=== PATIENT | male | born 1995 | race Caucasian/White ===

== ENCOUNTER 2019-11-01 19:46 | Emergency (ER) | payer BC, OTHER ==
[2019-11-01 20:26] VITALS: BP 108/75
--- NOTE | 2019-11-01 20:44 | UC ---
Skin Complaint HPI - HPI Summary HPI Summary: 24-year-old male who noticed an itchy red area the back of his left lower leg yesterday. He's been scratching at it and today it's a little more swollen but continues to be itchy. - History of Current Complaint Chief Complaint: [facility] Time Seen by Provider: 11/01/19 20:41 Stated Complaint: LEFT LEG RASH Hx Obtained From: Patient Onset/Duration: Gradual Onset Skin Exposure Onset/Duration: Worse Since: - Yesterday Timing: Constant Onset Severity: Mild Current Severity: Mild Pain Intensity: 0 Location: Other - Back of left lower leg Character: Pruritus, Redness Aggravating Factor(s): Nothing Alleviating Factor(s): Nothing Associated Signs & Symptoms: Positive: Rash - Allergy/Home Medications Allergies/Adverse Reactions: Allergies Allergy/AdvReac Type Severity Reaction Status Date / Time latex Allergy Rash Verified 11/01/19 20:22 Home Medications: Home Medications predniSONE 20 mg TAB [Deltasone 20 MG TAB*] 40 mg PO DAILY 4 Days #8 tab [Rx] PMH/Surg Hx/FS Hx/Imm Hx Previously Healthy: Yes - Surgical History Surgical History: Yes Surgery Procedure, Year, and Place: wisdom teeth - Family History Known Family History: Positive: Unknown - Social History Alcohol Use: Occasionally Substance Use Type: None Smoking Status (MU): Never Smoked Tobacco Type: eCigarettes Review of Systems All Other Systems Reviewed And Are Negative: Yes Skin: Positive: Rash - Patient states he has not been bitten by any bugs or insects. Is Patient Immunocompromised?: No Physical Exam Triage Information Reviewed: Yes Appearance: Well-Appearing, No Pain Distress, Well-Nourished Vital Signs: Initial Vital Signs Temp 98.1 F 11/01/19 20:22 Pulse 82 11/01/19 20:22 Resp 16 11/01/19 20:22 BP 108/75 11/01/19 20:22 Pulse Ox 99 11/01/19 20:22 Vital Signs Reviewed: Yes Musculoskeletal Exam: Normal Neurological Exam: Normal Psychological Exam: Normal Skin: Positive: Rashes - The back of the patient's left lower leg looks like he has 3 insects bites which he has been scratching. They are not warm to touch although there is some redness. This looks more like irritation from scratching as opposed to cellulitis. Course/Dx - Course Course Of Treatment: The patient is comfortable here however because this is worse instead of better I am going to treated with prednisone. He was given his first dose here. - Diagnoses Provider Diagnosis: Insect bite Discharge ED - Sign-Out/Discharge Documenting (check all that apply): Patient Departure All imaging exams completed and their final reports reviewed: No Studies - Discharge Plan Condition: Good Disposition: HOME Prescriptions: predniSONE 20 mg TAB [Deltasone 20 MG TAB*] 40 mg PO DAILY 4 Days #8 tab Patient Education Materials: Insect Bite or Sting (ED) Referrals: Care [facility] [Outside] [facility] [place] [facility] [Outside] No Primary Care Phys,NOPCP [Primary Care Provider] - Additional Instructions: Avoid scratching the area. Take the prednisone with food. Follow-up with [facility] in 3 or 4 days if no improvement. - Billing Disposition and Condition Condition: GOOD Disposition: Home
== END 2019-11-01 20:57 | disposition home or self-care (01) ==
LOC: UCCORT 19:46
DX: S80.862A Insect bite (nonvenomous), left lower leg, initial encounter (principal); Z91.040 Latex allergy status; W57.XXXA Bitten or stung by nonvenomous insect and other nonvenomous arthropods, initial encounter; Y92.9 Unspecified place or not applicable
CPT/HCPCS: 99212; G0463; J7512